=== PATIENT | female | born 1935 | race Caucasian/White ===

== ENCOUNTER 2019-12-21 08:46 | Day surgery (SDC) | payer MEDICARE, MEDICAID ==
[2019-12-21] VITALS (31 sets, daily range): BP systolic 140–200; BP diastolic 41–110
[~2019-12-21] VITALS: Ht 157.5 cm; Wt 64.0 kg
[~2019-12-21 08:46] MED LIST: ALBU8HFA PO; CLOP75TA15 PO; LOVA20TA2 PO
[2019-12-21] MEDS ORDERED: normal saline 1000ml 1,000 ML IV PRN (09:15)
[2019-12-21] MEDS ORDERED: FLUT12AE4 INH (09:27)
[2019-12-21] MEDS ORDERED: VIT1CAPS46 PO (09:27)
[2019-12-21] MEDS ORDERED: ATOR40TA72 PO (09:27)
[2019-12-21 11:03] LABS: BASOPHILS % (AUTO) 0.5 % (0-1); EOSINOPHILS % (AUTO) 0.6 % (0-6); HEMATOCRIT 39.4 % (35.0-45.0); HEMOGLOBIN 12.8 g/dl (12.0-16.0); LYMPHOCYTES # (AUTO) 1.6 X10'3 (1.1-4.8); LYMPHOCYTES % (AUTO) 25.1 % (21-51); MEAN CORPUSCULAR HGB CONC 32.6 g/dL (33.0-36.5); MEAN CORPUSCULAR VOLUME 92.2 FL (78-98); MEAN PLATELET VOLUME 8.8 FL (7.4-10.4); MONOCYTES # (AUTO) 0.7 X10'3 (0-0.9); MONOCYTES % (AUTO) 10.7 % (2-12); NEUTROPHILS # (AUTO) 3.9 X10'3 (1.8-7.7); NEUTROPHILS % (AUTO) 63.1 % (42-75); PLATELET COUNT 198 X10'3 (140-440); RED BLOOD COUNT 4.27 X10'6 (4.20-5.60); WHITE BLOOD COUNT 6.2 X10'3 (4.5-11.0)
[2019-12-21] MEDS ORDERED: gelatin sponge, absorbable (Gelfoam 12-7MM) sponge TP ONE (11:07)
[2019-12-21] MEDS ORDERED: midazolam 2 mg/2 ml injection ONE (11:19)
[2019-12-21] MEDS ORDERED: fentaNYL/PF 50MCG/1 ML 2ML syringe ONE ×2 (11:19→14:32)
[2019-12-21] MEDS ORDERED: ondansetron/PF 4mg/2ml inj ONE (11:20)
[2019-12-21] MEDS ORDERED: sodium chloride 0.45% 1,000 ML IV SCH (12:14)
--- NOTE | 2019-12-21 15:50 | NUR ---
Called Dr. Haley to ask about admit orders. stated to titrate O2 down, keeping sats >95%. also stated to keep pt on R side if possible.
[2019-12-21] MEDS ORDERED: acetaminophen 325mg tablet PO PRN (15:55)
[2019-12-21] MEDS ORDERED: HYDROmorphone inj. 0.5 MG/0.5 ML DISP.SYRIN IV PRN (15:55)
[2019-12-21] MEDS ORDERED: ondansetron/PF 4mg/2ml inj IV PRN (15:55)
[2019-12-21] MEDS ORDERED: mag hydrox/Alum hydrox/simeth 30ml oral suspension PO PRN (15:55)
[2019-12-21] MEDS ORDERED: magnesium hydroxide 30ml (MOM) UD suspension PO PRN (15:55)
[2019-12-21] MEDS: normal saline 1000ml 1,000 ML IV SCH (16:13)
--- NOTE | 2019-12-21 16:42 | NUR ---
Called surgical floor to give report on pt. RN accepting pt busy, to call Short Stay for report when available.
--- NOTE | 2019-12-21 16:55 | NUR ---
Report given to HARLEY Cota.
--- NOTE | 2019-12-21 17:15 | NUR ---
Pt transported to room 345A via wheelchair. Pt alert, oriented & in no acute distress at time of transfer. All pt belongings, including purse and glasses, gathered up and sent with pt. Pt ambulated with minimal assistance from wheelchair to bed, without difficulty.
[2019-12-21] MEDS ORDERED: hydrALAZINE 20mg/ml inj. IV PRN (17:55)
--- NOTE | 2019-12-21 18:20 | NUR ---
Patient in room [facility] 345A. I have received report from Beata SOUZA and had the opportunity to ask questions and assume patient care.
[2019-12-21] MEDS: heparin, porcine 5000 units/ml vial SQ SCH (19:56)
[2019-12-21] MEDS: albuterol 2.5 MG/3 ML nebule NEB SCH (20:00)
[2019-12-21] MEDS: budesonide 0.5mg/2ml UD nebule IH SCH (20:00)
[2019-12-21] MEDS ORDERED: non-formulary drug (Vit C/E/Zn/Coppr/Lutein/Zeaxan (Preservision Areds 2 Softgel) 1 CAP) PO SCH (20:00)
[2019-12-22] VITALS: BP 147/77
[2019-12-22] MEDS: normal saline 1000ml 1,000 ML IV SCH ×2 (01:52→09:22)
[2019-12-22] MEDS: albuterol 2.5 MG/3 ML nebule NEB SCH ×3 (03:27→14:00)
[2019-12-22 05:15] LABS: BASOPHILS % (AUTO) 0.3 % (0-1); EOSINOPHILS % (AUTO) 0.6 % (0-6); HEMOGLOBIN 12.2 g/dl (12.0-16.0); LYMPHOCYTES # (AUTO) 1.2 X10'3 (1.1-4.8); LYMPHOCYTES % (AUTO) 17.2 % (21-51); MEAN CORPUSCULAR HEMOGLOBIN 31.1 PG (27.0-31.0); MEAN CORPUSCULAR HGB CONC 33.8 g/dL (33.0-36.5); MONOCYTES # (AUTO) 0.7 X10'3 (0-0.9); NEUTROPHILS # (AUTO) 5.2 X10'3 (1.8-7.7); NEUTROPHILS % (AUTO) 71.9 % (42-75); PLATELET COUNT 175 X10'3 (140-440); RED BLOOD COUNT 3.91 X10'6 (4.20-5.60); RED CELL DISTRIBUTION WIDTH 14.8 % (11.5-14.5); WHITE BLOOD COUNT 7.2 X10'3 (4.5-11.0)
[2019-12-22 05:19] LABS: ALBUMIN 2.9 G/DL (3.4-5.0); ANION GAP 5 (8-16); BLOOD UREA NITROGEN 14 MG/DL (7-18); CALCIUM 9.2 MG/DL (8.5-10.1); CHLORIDE 106 MMOL/L (99-107); GLUCOSE 107 MG/DL (70-104); POTASSIUM 4.1 MMOL/L (3.5-5.1); SODIUM 139 MMOL/L (135-145); TOTAL CARBON DIOXIDE 27.7 MMOL/L (24-32); eGFR 79 ML/MIN
--- NOTE | 2019-12-22 06:10 | NUR ---
Problems reprioritized. Patient report given, questions answered & plan of care reviewed with Odalys SOUZA.
--- NOTE | 2019-12-22 06:38 | NUR ---
Patient in room [facility] 345. I have received report from More SOUZA and had the opportunity to ask questions and assume patient care.
--- NOTE | 2019-12-22 06:55 | NUR ---
Patient in room [facility] 345. I have received report from More SOUZA and had the opportunity to ask questions and assume patient care.
[2019-12-22 07:00] VITALS: BP 160/55
[2019-12-22] MEDS: heparin, porcine 5000 units/ml vial SQ SCH (07:42)
[2019-12-22] MEDS: HYDROcodone/acetaminophen 5mg/325mg tablet PO PRN ×2 (07:58→12:54)
[2019-12-22] MEDS: budesonide 0.5mg/2ml UD nebule IH SCH (08:00)
[2019-12-22] MEDS ORDERED: atorvastatin 20mg tablet PO SCH (08:00)
--- NOTE | 2019-12-22 09:11 | NUR ---
Page sent to Dr. Jorgensen PAGER ID: [phone] MESSAGE: [id number]. [facility] [id number]. Patient requests a nicotine patch, she's a current pack a day smoker. Thank you.
[2019-12-22] MEDS ORDERED: nicotine 14mg patch - 24hr TD ONE (09:15)
--- NOTE | 2019-12-22 16:25 | NUR ---
Patient stable for discharge per MD orders. All discharge instructions reviewed with patient and all questions answered. PIV discontinued, cannula intact. Belongings collected and sent with patient. Patient picked up by family member in private vehicle. Patient wheeled down to lobby by staff.
[2019-12-22 16:38] VITALS: BP 166/54
[2019-12-23] MEDS ORDERED: nicotine 14mg patch - 24hr TD SCH (08:00)
== END 2019-12-22 16:19 | disposition home or self-care (01) ==
LOC: SSTAY O 08:46 → SUR 3N 16:03 → SSTAY O 12-22 16:19
PROVIDERS: ATTEND Radiology Vascular & Interventional Radiology
DX: R91.8 Other nonspecific abnormal finding of lung field (principal); C34.11 Malignant neoplasm of upper lobe, right bronchus or lung; J93.9 Pneumothorax, unspecified; E78.5 Hyperlipidemia, unspecified; J44.9 Chronic obstructive pulmonary disease, unspecified; Z85.3 Personal history of malignant neoplasm of breast; F17.210 Nicotine dependence, cigarettes, uncomplicated; Z98.890 Other specified postprocedural states; Z88.5 Allergy status to narcotic agent; Z88.8 Allergy status to other drugs, medicaments and biological substances; Z79.899 Other long term (current) drug therapy; Z82.49 Family history of ischemic heart disease and other diseases of the circulatory system; Z80.8 Family history of malignant neoplasm of other organs or systems
CPT/HCPCS: 32405; 32557; 36415; 71045; 77012; 85025; 99152; 99153; J1644; J2250; J2405; J3010; J7030; 71046; 80048; 94640; 94760; G0378

== ENCOUNTER 2020-04-05 08:38 | Day surgery (SDC) | payer MEDICARE, MEDICAID ==
[~2020-04-05] VITALS: Ht 160 cm; Wt 64.9 kg
[2020-04-05] VITALS (14 sets, daily range): BP systolic 138–198; BP diastolic 56–92
[~2020-04-05 08:38] MED LIST changes: +ATOR40TA72 PO; -CLOP75TA15 PO; +FLUT12AE4 INH; -LOVA20TA2 PO; +VIT1CAPS46 PO
[2020-04-05] MEDS ORDERED: normal saline 1000ml 1,000 ML IV PRN (09:10)
[2020-04-05] MEDS ORDERED: TETR-74 OP (10:15)
[2020-04-05] MEDS ORDERED: IPRA3AMP9 IH (10:15)
[2020-04-05] MEDS ORDERED: HYDR-4383 PO (10:15)
[2020-04-05] MEDS ORDERED: AMLO5TAB16 PO (10:15)
[2020-04-05] MEDS ORDERED: midazolam 2 mg/2 ml injection ONE (10:59)
[2020-04-05] MEDS ORDERED: fentaNYL/PF 50MCG/1 ML 2ML syringe ONE (10:59)
--- NOTE | 2020-04-05 13:10 | NUR ---
Problems reprioritized. Patient report given, questions answered & plan of care reviewed with Nafisa SOUZA.
== END 2020-04-05 14:35 | disposition home or self-care (01) ==
LOC: SSTAY O 08:38
PROVIDERS: ATTEND Radiology Vascular & Interventional Radiology
DX: R91.1 Solitary pulmonary nodule (principal); C7A.1 Malignant poorly differentiated neuroendocrine tumors; J44.9 Chronic obstructive pulmonary disease, unspecified; E78.5 Hyperlipidemia, unspecified; F17.210 Nicotine dependence, cigarettes, uncomplicated; Z98.890 Other specified postprocedural states; Z88.8 Allergy status to other drugs, medicaments and biological substances; Z85.3 Personal history of malignant neoplasm of breast; Z88.5 Allergy status to narcotic agent; Z79.899 Other long term (current) drug therapy; Z90.11 Acquired absence of right breast and nipple; Z20.828 Contact with and (suspected) exposure to other viral communicable diseases; Z82.49 Family history of ischemic heart disease and other diseases of the circulatory system
CPT/HCPCS: 32405; 71045; 77012; 87635; 99152; 99153; C9803; J2250; J3010